=== PATIENT | female | born 1945 | race Caucasian/White ===

== ENCOUNTER 2016-09-19 12:36 | Emergency (ER) | payer MEDICARE, OTHER ==
--- NOTE | 2016-09-19 13:45 | ED Physician Documentation ---
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 - Present Medications Home Medications: Ambulatory Orders Medication Instructions Recorded Confirmed Carvedilol [Coreg] 12.5 mg PO BID 09/02/14 09/19/16 Pantoprazole [Protonix] 40 mg PO DAILY 09/02/14 09/19/16 Lisinopril 10 mg PO DAILY 09/19/16 09/19/16 - Allergies Allergies/Adverse Reactions: Allergies Allergy/AdvReac Type Severity Reaction Status Date / Time No Known Drug Allergies Allergy Verified 07/29/15 18:23 - Social History Does the pt smoke?: No Smoking Status: Never smoker Does the pt drink ETOH?: No Does the pt have substance abuse?: No - Immunizations Immunizations are current?: Yes - POLST Patient has POLST: No Results - Vitals Vitals: Vital Signs - 24 hr 09/19/16 12:43 Temperature 36.4 C L Heart Rate 56 L Respiratory 16 Rate Blood Pressure 143/79 H O2 Saturation 100 Oxygen O2 Source Room air
[2016-09-19] MEDS ORDERED: DEXAMETHASONE 10 MG/ML VIAL PO STA (14:02)
[2016-09-19] MEDS ORDERED: DEXAMETHASONE 10 MG/ML VIAL ONE (14:04)
--- NOTE | 2016-09-19 14:51 | XRAY Preliminary Report ---
Exam: XR Hand 3 View RT IMPRESSION: 1. No acute bony abnormality. 2. Mild to moderate noninflammatory degenerative changes wrist. 3. Minimal degenerative changes DIP joints. [facility] SITE ID: [id number]
--- NOTE | 2016-09-19 15:00 | XRAY Report ---
EXAM: RIGHT HAND RADIOGRAPHY EXAM DATE: 09/19/2016 02:29 PM. CLINICAL HISTORY: Pain without acute precipitating injury. Remote fracture. COMPARISON: None. TECHNIQUE: 3 views. FINDINGS: Bones: Mature irregularity radial articular cortex consistent with an old fracture. Trabecular and cortical patterns are intact. No ulnar variance. Joints: Bones in anatomic alignment. Numerous 6 mm and smaller subcortical cysts throughout the carpa l bones. Moderate narrowing of the intercarpal joint spaces without erosive changes, to a greatest de gree at the scapho-greater multangular. Grade 1 subluxation base first metacarpal relative to the greater multangular without bony reactive c hanges. Chondrocalcinosis of the triangular fibrocartilage. Extremely tiny osteophytes and subcortical reactive changes involving the DIP joints. Soft Tissues: Normal. No soft tissue swelling. IMPRESSION: 1. No acute bony abnormality. 2. Mild to moderate noninflammatory degenerative changes wrist. 3. Minimal degenerative changes DIP joints. [facility] Referring Provider Line: [phone] SITE ID: [id number]
--- NOTE | 2016-09-19 15:13 | ED Physician Documentation ---
History of Present Illness - Stated complaint Stated Complaint: HAND PX - Chief complaint Chief Complaint: Ext Problem - History obtained from History obtained from: Patient - History of Present Illness Timing: How many days ago (4) - Additonal information Additional information: 71 y/o female has broken her right hand previously and this has healed and she has not had problems with it until several days ago. She has started to have pain in the hand over the area where she had the fracture and she is concerned as she has a history of previous polio and post polio syndrome. She does not think she did anything to her hand to injure it but she did do some work that she is not used to doing including cleaning up trees that fell on her property with her . Review of Systems Constitutional: denies: Fever, Chills, Fatigue Eyes: denies: Decreased vision Ears: reports: Ear pain Nose: reports: Rhinorrhea / runny nose, Congestion Throat: denies: Sore throat Cardiac: denies: Chest pain / pressure, Palpitations Respiratory: denies: Dyspnea, Cough GI: denies: Nausea, Vomiting : denies: Dysuria, Frequency Skin: denies: Rash Musculoskeletal: reports: Extremity pain, Joint pain. denies: Neck pain, Back pain Neurologic: reports: Headache. 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 - Present Medications Home Medications: Ambulatory Orders Medication Instructions Recorded Confirmed Carvedilol [Coreg] 12.5 mg PO BID 09/02/14 09/19/16 Pantoprazole [Protonix] 40 mg PO DAILY 09/02/14 09/19/16 Levofloxacin [Levaquin] 500 mg PO DAILY #7 tablet 09/19/16 Lisinopril 10 mg PO DAILY 09/19/16 09/19/16 - Allergies Allergies/Adverse Reactions: Allergies Allergy/AdvReac Type Severity Reaction Status Date / Time No Known Drug Allergies Allergy Verified 07/29/15 18:23 - Social History Does the pt smoke?: No Smoking Status: Never smoker Does the pt drink ETOH?: No Does the pt have substance abuse?: No - Immunizations Immunizations are current?: Yes - POLST Patient has POLST: No PD ED PE NORMAL - Vitals Vital signs reviewed: Yes (hypertensive ) - General General: Alert and oriented X 3, No acute distress, Well developed/nourished - HEENT HEENT: Atraumatic, PERRL, EOMI, Other (The left TM is mildly inflamed and the right is clear. ) - Neck Neck: Supple, no meningeal sign, No bony TTP - Cardiac Cardiac: RRR, No murmur - Respiratory Respiratory: No respiratory distress, Clear bilaterally - Abdomen Abdomen: Soft, Non tender - Back Back: No CVA TTP, No spinal TTP - Derm Derm: Normal color, Warm and dry, No rash - Extremities Extremities: No deformity, No edema, Other (The hand itself is working normally there is no sign of direct inflamation and the distal n/v is intact. 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 No acute bony abnormality. 2. Mild/moderate noninflammatory degenerative changes wrist. 3. Minimal degenerative changes DIP joints.), EMP read indepedently, See rad report PD MEDICAL DECISION MAKING - ED course Complexity details: considered differential, d/w patient ED course: mild inflammation in the left ear has been an issue for the patient since a return home from a trip that resulted in pneumonia and OM. She appears to have pain in the hand after increased use and in the context of OM that has been a problem for over a year. She is reassured by looking at the films of her hand and she is given decadron 10m PO and we will put her on some levaquin. Departure - Departure Disposition: 01 Home, Self Care Clinical Impression: Right hand pain Left otitis media Qualifiers: Otitis media type: suppurative Chronicity: acute Recurrence: not specified as recurrent Spontaneous tympanic membrane rupture: without spontaneous rupture Qualified Code(s): H66.002 - Acute suppurative otitis media without spontaneous rupture of ear drum, left ear Condition: Stable Instructions: ED Otitis Media Acute Adult Follow-Up: Jaun Gould MD [Primary Care Provider] - Prescriptions: Levofloxacin [Levaquin] 500 mg PO DAILY #7 tablet
[2016-09-19 15:33] VITALS: BP 153/67
== END 2016-09-19 15:33 | disposition home or self-care (01) ==
LOC: ED 12:36
DX: M79.641 Pain in right hand (principal); H66.002 Acute suppurative otitis media without spontaneous rupture of ear drum, left ear; I10 Essential (primary) hypertension; K21.9 Gastro-esophageal reflux disease without esophagitis; Z87.442 Personal history of urinary calculi; M19.90 Unspecified osteoarthritis, unspecified site
CPT/HCPCS: 99283

== ENCOUNTER 2017-02-21 07:59 | Outpatient (CLI) | payer MEDICARE, OTHER ==
--- NOTE | 2017-02-26 17:11 | Mammography Report ---
DIGITAL SCREENING MAMMOGRAM: 02/21/2017 CLINICAL INDICATION: A 71-year-old with history of late childbearing, for screening. COMPARISON: Films from [place], [place] dated 03/20/2015, 03/18/2014, 03/15/2013, 03/11/2012, 12/2010, 03/05/2010. TECHNIQUE: Routine CC and MLO projections were obtained of the breasts. Bilateral laterally exaggera bharath craniocaudal views. FINDINGS: The breasts again demonstrate heterogeneously dense fibroglandular parenchyma bilaterally. Punctate, typically benign calcifications are present. No suspicious masses, clustered microcalcific ations, or regions of architectural distortion are identified. IMPRESSION: BENIGN FINDINGS. RECOMMENDATION: ROUTINE ANNUAL SCREENING UNLESS OTHERWISE CLINICALLY INDICATED. BIRADS CATEGORY 2-BENIGN FINDINGS. STANDARD QUALIFYING STATEMENTS 1. This examination was reviewed with the aid of Computer-Aided Detection (CAD). 2. A negative or benign imaging report should not delay biopsy if clinically suspicious findings are present. Consider surgical consultation if warranted. More than 5% of cancers are not identified by i maging. 3. Dense breasts may obscure an underlying neoplasm. JOB #: [id number] EXT JOB #:[id number]
== END 2017-02-21 08:00 | disposition home or self-care (01) ==
LOC: DI 07:59
PROVIDERS: ATTEND Obstetrics & Gynecology
DX: Z12.31 Encounter for screening mammogram for malignant neoplasm of breast (principal)
CPT/HCPCS: 77067

== ENCOUNTER 2017-05-01 10:00 | Outpatient (CLI) | payer MEDICARE, OTHER ==
--- NOTE | 2017-05-02 08:54 | XRAY Report ---
DATE OF SERVICE: 05/01/2017 TWO VIEW CHEST: 05/01/2017 COMPARISON: Chest CT 07/29/2015. INDICATION: Postop surgery 2 days ago. Possible bronchitis. TECHNIQUE: Two views of the chest. FINDINGS: The lungs appear clear. No pneumothorax or pleural effusion. Mediastinum unremarkable, apart from tortuosity of the thoracic aorta. IMPRESSION: No evidence of acute thoracic process. TD: 05/01/2017 19:01 [facility]
== END 2017-05-01 10:01 | disposition home or self-care (01) ==
LOC: DI 10:00
PROVIDERS: ATTEND Family Medicine
DX: J20.9 Acute bronchitis, unspecified (principal); E21.3 Hyperparathyroidism, unspecified; Z86.12 Personal history of poliomyelitis
CPT/HCPCS: 71046

== ENCOUNTER 2018-03-25 09:26 | Outpatient (CLI) | payer MEDICARE, OTHER ==
--- NOTE | 2018-03-26 09:04 | Mammography Report ---
Reason: SCREENING MAMMO Procedure Date: 03/25/2018 Accession Number: [id number] / [id number] Procedure: MGN - Screening Mammo Dig Bilat CPT Code: FULL RESULT: EXAM: Screening Mammo Dig Bilat DATE: 03/25/2018 9:54 AM CLINICAL HISTORY: Screening encounter. History of late childbearing. TECHNIQUE: Bilateral CC, laterally exaggerated CC, MLO views were obtained. COMPARISON: 02/21/2017 through 03/11/2012. FINDINGS: The breasts demonstrate heterogeneously dense fibroglandular parenchyma bilaterally. No suspicious masses, clustered microcalcifications, or regions of architectural distortion are identified. IMPRESSION: Negative examination RECOMMENDATION: Routine annual screening unless otherwise clinically indicated. BIRADS CATEGORY 1: Negative STANDARD QUALIFYING STATEMENTS: 1. This examination was reviewed with the aid of Computer-Aided Detection (CAD). 2. A negative or benign imaging report should not preclude biopsy if clinically suspicious findings are present. 3. Dense breasts may obscure an underlying neoplasm. 4. This examination was reviewed without the aid of 3D breast imaging (tomosynthesis).
== END 2018-03-25 09:27 | disposition home or self-care (01) ==
LOC: DI.N 09:26
DX: Z12.31 Encounter for screening mammogram for malignant neoplasm of breast (principal)
CPT/HCPCS: 77067

== ENCOUNTER 2018-09-15 14:11 | Outpatient (CLI) | payer MEDICARE, OTHER ==
--- NOTE | 2018-09-15 15:23 | XRAY Report ---
Reason: PLEURODYNIA Procedure Date: 09/15/2018 Accession Number: [id number] / [id number] Procedure: XR - Chest 2 View X-Ray CPT Code: 05362 FULL RESULT: EXAM: CHEST RADIOGRAPHY EXAM DATE: 09/15/2018 02:33 PM. CLINICAL HISTORY: PLEURODYNIA. COMPARISON: CHEST 2 VIEW 05/01/2017 10:26 AM. TECHNIQUE: 2 views. FINDINGS: Lungs/Pleura: There is minimal linear opacification at the left lung base, favor subsegmental atelectasis. No lobar consolidation. No pleural effusion. No pneumothorax. Normal volumes. Mediastinum: Heart and mediastinal contours are unremarkable. Other: None. IMPRESSION: Suspect subsegmental atelectasis at the left lung base. [facility]
== END 2018-09-15 14:12 | disposition home or self-care (01) ==
LOC: DI 14:11
PROVIDERS: ATTEND Specialist
DX: J98.11 Atelectasis (principal)
CPT/HCPCS: 71046

== ENCOUNTER 2019-07-01 08:32 | Outpatient (CLI) | payer MEDICARE, OTHER ==
--- NOTE | 2019-07-02 08:39 | Mammography Report ---
Reason: ROUTINE MAMMO Procedure Date: 07/01/2019 Accession Number: [id number] / [id number] Procedure: SINGH - Screening Mammo w/Tor CPT Code: Final Report FULL RESULT: EXAM: Screening Mammo w/Tor DATE: 07/01/2019 9:07 AM CLINICAL HISTORY: Screening encounter. History of late childbearing. TECHNIQUE: (B) - Bilateral CC, laterally exaggerated CC, MLO views were obtained. COMPARISON: 03/25/2018 through 03/05/2010. PARENCHYMAL PATTERN: (D) - The breast(s) demonstrate(s) heterogeneously dense fibroglandular parenchyma. FINDINGS: There are no suspicious masses, calcifications, or areas of distortion. IMPRESSION: Negative examination. BI-RADS category 1. RECOMMENDATION: (ANNUAL) - Recommend routine annual screening mammography. BI-RADS CATEGORY: (1) - Negative. STANDARD QUALIFYING STATEMENTS: 1. This examination was not reviewed with the aid of Computer-Aided Detection (CAD). 2. A negative or benign imaging report should not preclude biopsy if clinically suspicious findings are present. 3. Dense breasts may obscure an underlying neoplasm. 4. This examination was reviewed without the aid of 3D breast imaging (tomosynthesis).
== END 2019-07-01 08:33 | disposition home or self-care (01) ==
LOC: DI 08:32
PROVIDERS: ATTEND Obstetrics & Gynecology
DX: Z12.31 Encounter for screening mammogram for malignant neoplasm of breast (principal)
CPT/HCPCS: 77063; 77067

== ENCOUNTER 2019-07-01 08:32 | Outpatient (CLI) | payer MEDICARE, OTHER ==
--- NOTE | 2019-07-02 10:24 | DEXA Report ---
Reason: POSTMENOPAUSAL Procedure Date: 07/01/2019 Accession Number: [id number] / [id number] Procedure: DEX - Dexa Spine and/or Hip CPT Code: Final Report FULL RESULT: EXAM: Dexa Spine and/or Hip DATE: 07/01/2019 9:36 AM CLINICAL HISTORY: POSTMENOPAUSAL TECHNIQUE: Dual energy x-ray absorptiometry (DXA) was performed on a [employer] System. Regions measured are the AP Spine, femoral neck, and if needed forearm. COMPARISON: 03/19/2016. In accordance with the International Society for Clinical Densitometry (ISCD) guidelines, data from previous exams may be reanalyzed using current recommendations and techniques. This is done to allow a more accurate basis for comparison with the current study. FINDINGS: The data for the lumbar spine is as follows: BMD (g/cm/cm) T-SCORE Z-SCORE REGION L1 0.912 -1.8 -0.7 L2 1.104 -0.8 0.4 L3 1.213 0.1 1.3 L4 1.364 1.4 2.5 TOTAL 1.151 -0.2 0.9 NOTE: All evaluable vertebrae are used for classification The data for the hip is as follows: BMD (g/cm/cm) T-SCORE Z-SCORE REGION Neck 0.700 -2.4 -1.0 TOTAL 0.805 -1.6 -0.4 NOTE: The femoral neck or total proximal femur, whichever is lowest, is used for classification. DXA RESULTS SUMMARY: Spine SCAN DATE AGE BMD CHANGE VS CHANGE VS PREVIOUS PREVIOUS % 07[birth year]01/2019 [age] 1.151 0.100* 9.5* 03/19/2016 [age] 1.051 * Denotes significant change at the 95% confidence level. Denotes dissimilar scan types or analysis methods. DXA RESULTS SUMMARY: Hip SCAN DATE AGE BMD CHANGE VS CHANGE VS PREVIOUS PREVIOUS % 07[birth year]01/2019 74.3 0.805 -0.011 -1.3 03/19/2016 [age] 0.816 * Denotes significant change at the 95% confidence level. Denotes dissimilar scan types or analysis methods. IMPRESSION: THE WHO CLASSIFICATION BASED ON THE INTERNATIONAL REFERENCE STANDARD IS OSTEOPENIA. THE FRACTURE RISK IS INCREASED. Interval decrease in bone density in the lumbar spine is statistically significant. RECOMMENDATION: Patients with diagnosis of osteoporosis or osteopenia should have regular bone mineral density assessment. For those eligible for Medicare, routine testing is allowed once every 2 years. Testing frequency can be increased for patients who have rapidly progressing disease or for those who are receiving medical therapy to restore bone mass. COMMENT: World Health Organization (WHO) definitions for osteoporosis and osteopenia: NORMAL BMD: T-score at -1.0 or higher, fracture risk is low OSTEOPENIA BMD: T-score between -1.0 and -2.5, fracture risk is increased. OSTEOPOROSIS BMD: T-score at -2.5 or lower, fracture risk is high. National Osteoporosis Foundation recommends: 1. Obtain adequate dietary calcium (at least 1200 mg per day) and vitamin D (400-800 international units per day). 2. Participate, as appropriate, in regular weightbearing and muscle-strengthening exercise. 3. Avoid tobacco use and reduce alcohol and caffeine intake. 4. For more detailed information see the website at www.NOF.org.
== END 2019-07-01 08:33 | disposition home or self-care (01) ==
LOC: DI 08:32
PROVIDERS: ATTEND Obstetrics & Gynecology
DX: M85.88 Other specified disorders of bone density and structure, other site (principal)
CPT/HCPCS: 77080

== ENCOUNTER 2020-07-05 08:56 | Outpatient (CLI) | payer MEDICARE, OTHER ==
--- NOTE | 2020-07-06 13:27 | Mammography Report ---
BILATERAL DIGITAL SCREENING MAMMOGRAM 3D/2D: 07/05/2020 CLINICAL: Routine screening. Comparison is made to exams dated: 07/01/2019 mammogram, 03/25/2018 mammogram, 02/21/2017 mammogram - [facility], 03/20/2015 mammogram, 03/18/2014 mammogram, and 03/15/2013 mammogram - [facility]. The tissue of both breasts is predominantly fatty. No significant masses, calcifications, or other findings are seen in either breast. There has been no significant interval change. IMPRESSION: NEGATIVE There is no mammographic evidence of malignancy. A 1 year screening mammogram is recommended. This exam was interpreted at Station ID: [id number]. NOTE: For mammograms, a report in lay terms will be sent to the patient. Approximately 15% of breast malignancies will not be visualized mammographically. In the management of a palpable breast mass, a negative mammogram must not discourage biopsy of a clinically suspicious lesion. Electronically Signed By: Octavio Sawant M.D., jr/tomasa:07/05/2020 09:54:33 ACR BI-RADS Category 1: Negative 3341F PARENCHYMAL PATTERN: (F) - The breast(s) demonstrate(s) diffuse fatty replacement. BI-RADS CATEGORY: (1) - 1 RECOMMENDATION: (ANNUAL) - Recommend routine annual screening mammography. [id number] 1 year screening LATERALITY: (B)
== END 2020-07-05 08:57 | disposition home or self-care (01) ==
LOC: DI.N 08:56
DX: Z12.31 Encounter for screening mammogram for malignant neoplasm of breast (principal)

== ENCOUNTER 2020-07-06 17:14 | Outpatient (CLI) | payer MEDICARE, OTHER ==
--- NOTE | 2020-07-07 12:04 | XRAY Report ---
PROCEDURE: Cervical Spine 2 View INDICATIONS: Cervicalgia TECHNIQUE: 3 view(s) of the cervical spine were acquired. COMPARISON: None. FINDINGS: Bones: No fractures or dislocations to the C7-T1 level. The lateral masses of C1 appear intact on t he odontoid view. No suspicious bony lesions. There is grade 1 retrolisthesis, 2 mm of C3 on C4, ra te 1 anterolisthesis, 1 mm the C4 on C5, grade 1 retrolisthesis of C5 on C6, 1 mm. There is severe di sc space narrowing at C3-4 C5-6 and C6-7. Multilevel uncovertebral arthropathy is present. Soft tissues: No prevertebral soft tissue swelling. IMPRESSION: Multilevel degenerative changes most severe at C5-6 and C6-7. Given the degree of multil evel uncovertebral arthropathy, there is likely foraminal narrowing. MRI cervical spine may be obtain ed as clinically indicated for further evaluation. Reviewed by: Milla Courtney MD on 07/07/2020 12:03 PM PST Approved by: Milla Courtney MD on 07/07/2020 12:03 PM PST Station ID: [id number]
== END 2020-07-06 17:15 | disposition home or self-care (01) ==
LOC: DI 17:14
PROVIDERS: ATTEND Internal Medicine
DX: M54.2 Cervicalgia (principal); M47.812 Spondylosis without myelopathy or radiculopathy, cervical region

== ENCOUNTER 2021-08-08 11:43 | Outpatient (CLI) | payer MEDICARE, OTHER ==
--- NOTE | 2021-08-09 15:53 | Mammography Report ---
BILATERAL DIGITAL SCREENING MAMMOGRAM 3D/2D: 08/08/2021 CLINICAL: Routine screening. Comparison is made to exams dated: 07/05/2020 mammogram, 07/01/2019 mammogram, 03/25/2018 mammogram, mammogram - [facility], 03/20/2015 mammogram, and 03/18/2014 mammogram - [facility]. The tissue of both breasts is heterogeneously dense. This may lower th e sensitivity of mammography. No significant masses, calcifications, or other findings are seen in either breast. There has been no significant interval change. IMPRESSION: NEGATIVE There is no mammographic evidence of malignancy. A 1 year screening mammogram is recommended. This exam was interpreted at Station ID: [id number]. NOTE: For mammograms, a report in lay terms will be sent to the patient. Approximately 15% of breast malignancies will not be visualized mammographically. In the management of a palpable breast mass, a negative mammogram must not discourage biopsy of a clinically suspicious lesion. Electronically Signed By: Ev quiles/tomasa:08/08/2021 16:55:55 ACR BI-RADS Category 1: Negative 3341F PARENCHYMAL PATTERN: (D) - The breast(s) demonstrate(s) heterogeneously dense fibroglandular carli aguirre. BI-RADS CATEGORY: (1) - 1 RECOMMENDATION: (ANNUAL) - Recommend routine annual screening mammography. [id number] 1 year screening LATERALITY: (B)
== END 2021-08-08 11:44 | disposition home or self-care (01) ==
LOC: DI.N 11:43
PROVIDERS: ATTEND Obstetrics & Gynecology
DX: Z12.31 Encounter for screening mammogram for malignant neoplasm of breast (principal)

== ENCOUNTER 2021-09-20 12:07 | Outpatient (CLI) | payer MEDICARE ==
--- NOTE | 2021-09-20 14:23 | XRAY Report ---
PROCEDURE: Shoulder 3 View RT INDICATIONS: RIGHT SHOULDER PAIN TECHNIQUE: 3 views of the shoulder were acquired. COMPARISON: None. FINDINGS: Bones: No fractures or dislocations. No suspicious bony lesions. Moderate degenerative changes are present at the right acromioclavicular joint. Visualized ribs appear intact. Soft tissues: No suspicious soft tissue calcifications. IMPRESSION: Degenerative change of the right acromioclavicular joint. Reviewed by: Marta Carrasco MD on 09/20/2021 2:21 PM PDT Approved by: Marta Carrasco MD on 09/20/2021 2:21 PM PDT Station ID: [id number]
== END 2021-09-20 12:08 | disposition home or self-care (01) ==
LOC: DI 12:07
PROVIDERS: ATTEND Physician Assistant
DX: M19.011 Primary osteoarthritis, right shoulder (principal)

== ENCOUNTER 2021-10-04 12:24 | Outpatient (CLI) | payer MEDICARE ==
--- NOTE | 2021-10-04 15:33 | DEXA Report ---
PROCEDURE: Dexa Spine and/or Hip INDICATIONS: OSTEOPENIA TECHNIQUE: Dual energy x-ray absorptiometry (DXA) was performed on a [employer] System. Regions measur ed are the AP Spine, femoral neck, and if needed forearm. COMPARISON: None. FINDINGS: Lumbar Spine: Bone Mineral Density 1.168 g/cm/cm,T score -0.1, normal Left total Hip: Bone Mineral Density 0.800 g/cm/cm,T score -1.7, osteopenia Left Femoral Neck: Bone Mineral Density 0.634 g/cm/cm, T score -2.9, osteoporosis (T score greater or equal to -1.0: NORMAL) (T score from -1.1 to -2.4: OSTEOPENIA) (T score less than or equal to -2.5 to: OSTEOPOROSIS) Impression: Bone mineral density consistent with osteoporosis. Patients with diagnosis of osteoporosis or osteopenia should have regular bone mineral density assess ment. For those eligible for Medicare, routine testing is allowed once every 2 years. Testing frequ ency can be increased for patients who have rapidly progressing disease or for those who are receivin g medical therapy to restore bone mass. Reviewed by: Tarik Sherman on 10/04/2021 3:31 PM PDT Approved by: Tarik Sherman on 10/04/2021 3:31 PM PDT Station ID: [id number]
== END 2021-10-04 12:25 | disposition home or self-care (01) ==
LOC: DI 12:24
PROVIDERS: ATTEND Physician Assistant
DX: M85.88 Other specified disorders of bone density and structure, other site (principal)

== ENCOUNTER 2022-10-07 07:52 | Outpatient (CLI) | payer MEDICARE ==
--- NOTE | 2022-10-07 16:08 | DEXA Report ---
PROCEDURE: Dexa Spine and/or Hip INDICATIONS: OSTEOPENIA TECHNIQUE: Dual energy x-ray absorptiometry (DXA) was performed on a [employer] System. Regions measur ed are the AP Spine, femoral neck, and if needed forearm. COMPARISON: DEXA 10/04/2021 FINDINGS: Lumbar Spine: Bone Mineral Density 1.185 g/cm/cm,T score 0, compared to -0.1. Left Femoral Neck: Bone Mineral Density 0.650 g/cm/cm, T score -2.8, compared to -2.9. Left Hip: Bone Mineral Density 0.762 g/cm/cm,T score -1.9, compared to -1.7. Right femoral neck: Bone mineral density 0.689 g/cm/cm, T score -2.5, no priors. Right hip: Bone mineral density 0.790 g/cm/CM, T score -1.7, no priors Left Forearm: Bone Mineral Density 0.777 g/cm/cm, T score -1.1, no priors for comparison including forearm. (T score greater or equal to -1.0: NORMAL) (T score from -1.1 to -2.4: OSTEOPENIA) (T score less than or equal to -2.5 to: OSTEOPOROSIS) Impression: By WHO criteria, this patient has osteoporosis within the left femoral neck. There is osteopenia with in the hips bilaterally Patients with diagnosis of osteoporosis or osteopenia should have regular bone mineral density assess ment. For those eligible for Medicare, routine testing is allowed once every 2 years. Testing frequ ency can be increased for patients who have rapidly progressing disease or for those who are receivin g medical therapy to restore bone mass. Reviewed by: Milla Courtney MD on 10/07/2022 4:07 PM PDT Approved by: Milla Courtney MD on 10/07/2022 4:07 PM PDT Station ID: [id number]
== END 2022-10-07 07:53 | disposition home or self-care (01) ==
LOC: DI 07:52
PROVIDERS: ATTEND Internal Medicine Endocrinology, Diabetes & Metabolism
DX: M81.0 Age-related osteoporosis without current pathological fracture (principal)

== ENCOUNTER 2022-12-17 13:59 | Outpatient (CLI) | payer MEDICARE ==
--- NOTE | 2022-12-18 09:27 | Mammography Report ---
BILATERAL DIGITAL SCREENING MAMMOGRAM 3D/2D: 12/17/2022 CLINICAL: Routine screening. Comparison is made to exams dated: 08/08/2021 mammogram, 07/05/2020 mammogram, 07/01/2019 mammogram, mammogram, 02/21/2017 mammogram - [facility], and 03/20/2015 mammogram - [facility]. Both breasts are heterogeneously dense, which may obscure small masses (category c / 51-75% glandular tissue). No significant masses, calcifications, or other findings are seen in either breast. There has been no significant interval change. IMPRESSION: NEGATIVE There is no mammographic evidence of malignancy. A 1 year screening mammogram is recommended. Based on the Tyrer Cuzick model (a risk assessment model) the patients lifetime risk is 5.6% and her 10 year risk is 5.6%. According to the ACR, ACS, and NCCN guidelines, an annual breast MRI exam zay g with mammogram is recommended if the patients lifetime risk is 20% or greater. This exam was interpreted at Station ID: [id number]. NOTE: For mammograms, a report in lay terms will be sent to the patient. Approximately 15% of breast malignancies will not be visualized mammographically. In the management of a palpable breast mass, a negative mammogram must not discourage biopsy of a clinically suspicious lesion. Electronically Signed By: Ev [email or web address]/[email or web address]:12/18/2022 08:16:00 letter sent: No_Letter ACR BI-RADS Category 1: Negative 3341F PARENCHYMAL PATTERN: (D) - The breast(s) demonstrate(s) heterogeneously dense fibroglandular carli aguirre. BI-RADS CATEGORY: (1) - 1 Mammogram [id number] 1 year screening LATERALITY: (B)
== END 2022-12-17 14:00 | disposition home or self-care (01) ==
LOC: DI 13:59
PROVIDERS: ATTEND Nurse Practitioner Family
DX: Z12.31 Encounter for screening mammogram for malignant neoplasm of breast (principal)

== ENCOUNTER 2023-01-01 14:46 | Outpatient (CLI) | payer MEDICARE | END 2023-01-01 14:47 | disposition home or self-care (01) | LOC: DI 14:46 | PROVIDERS: ATTEND Family Medicine | DX: I34.0 Nonrheumatic mitral (valve) insufficiency (principal); I77.810 Thoracic aortic ectasia | CPT/HCPCS: 93306 ==

== ENCOUNTER 2023-04-16 07:57 | Outpatient (CLI) | payer MEDICARE ==
--- NOTE | 2023-04-16 10:22 | Ultrasound Report ---
PROCEDURE: Retroperitoneal INDICATIONS: HYPDERPARATHYROIDISM TECHNIQUE: Real-time scanning was performed of the retroperitoneal organs, with image documentation. COMPARISON: CT abdomen pelvis 09/02/2014. FINDINGS: Kidneys: Kidneys are normal in size. Right kidney measures 11.8 cm long; left kidney measures 9.9 c m long. Right renal cortical thickness is 1.4 cm; left renal cortical thickness is 0.8 cm. No solid masses or hydronephrosis. Bilateral renal stones. Right superior lateral stone measuring 1.9 cm, rig ht mainstem measuring 1.6 cm. Left mid stone measuring 1.8 cm. Left inferior stone measuring 1.5 cm. Bladder: Pre-void bladder volume is 80 mL. Post-void residual is 5 mL. Pre-void images demonstrate no intraluminal masses or stones. On pre-void images, bilateral ureteral jets are noted with color Doppler interrogation. (Of note, ureteral jets may not be detectable in up to 25% of cases due to in sufficient differences in specific gravity between ureteral and bladder urine). Miscellaneous: No free abdominal fluid. IMPRESSION: Bilateral renal stones measuring up to 1.9 cm. No hydronephrosis. Reviewed by: Carlos De Jesus MD on 04/16/2023 10:21 AM PST Approved by: Carlos De Jesus MD on 04/16/2023 10:21 AM PST Station ID: [id number]
== END 2023-04-16 07:58 | disposition home or self-care (01) ==
LOC: DI 07:57
PROVIDERS: ATTEND Internal Medicine
DX: E21.3 Hyperparathyroidism, unspecified (principal); N20.0 Calculus of kidney

== ENCOUNTER 2023-07-03 11:52 | Emergency (ER) | payer MEDICARE ==
--- NOTE | 2023-07-03 12:58 | XRAY Report ---
PROCEDURE: Chest 2V INDICATIONS: cough 1 week TECHNIQUE: 2 views of the chest were acquired. COMPARISON: None. FINDINGS: Surgical changes and devices: None. Lungs and pleura: No pleural effusions or pneumothorax. Lungs are clear. Mediastinum: Mediastinal contours appear normal. Heart size is normal. Bones and chest wall: No suspicious bony lesions. Overlying soft tissues appear unremarkable. IMPRESSION: No acute cardiopulmonary process. Reviewed by: Aleyda Plata MD on 07/03/2023 12:57 PM [facility] Approved by: Aleyda Plata MD on 07/03/2023 12:57 PM [facility] Station ID: [id number]
--- NOTE | 2023-07-03 13:55 | ED Physician Documentation ---
PD HPI URI - Stated complaint Stated Complaint: CONGESTION,COUGH/PX - Chief complaint Chief Complaint: Heent - History obtained from History obtained from: Patient - Additional information Additional information: Patient is a 78-year-old female with a history of hypertension presenting for evaluation of at least 4 days of nasal congestion with clear drainage and a dry hacking cough. Patient did take a home COVID test 2 days ago which was negative. Denies fever, chest pain, shortness of air. Reports having history of bronchitis and pneumonia which prompted her coming to the ER today for evalu ation. She has been tolerating p.o. intake. No recent travel. No known sick contacts. No leg swelling or pain.Cough is worse at night. Review of Systems Constitutional: denies: Fever Nose: reports: Congestion Cardiac: denies: Chest pain / pressure Respiratory: reports: Cough. denies: Dyspnea GI: denies: Abdominal Pain, Vomiting PD PAST MEDICAL HISTORY - Past Medical History Cardiovascular: Hypertension Respiratory: Shortness of breath GI: GERD : Kidney stones Musculoskeletal: Osteoarthritis, Fatigue, Chronic back pain, Other - Past Surgical History Past Surgical History: Yes Ortho: Other /ENDOCRINOLOGY NURSE: section - Present Medications Home Medications: Ambulatory Orders Medication Instructions Recorded Confirmed carvediloL [Coreg] 12.5 mg PO BID 09/02/14 07/03/23 lisinopriL [Lisinopril] 10 mg PO DAILY 09/19/16 07/03/23 Atorvastatin [Lipitor] 40 mg PO DAILY 07/03/23 07/03/23 - Allergies Allergies/Adverse Reactions: Allergies Allergy/AdvReac Type Severity Reaction Status Date / Time No Known Drug Allergies Allergy Verified 07/03/23 12:05 - Social History Does the pt smoke?: No Smoking Status: Never smoker Does the pt drink ETOH?: No Does the pt have substance abuse?: No - Immunizations Immunizations are current?: Yes - POLST Patient has POLST: No PD ED PE NORMAL - General General: Alert and oriented X 3, No acute distress, Well developed/nourished - HEENT HEENT: Atraumatic, Moist mucous membranes, Pharynx benign - Neck Neck: Supple, no meningeal sign - Cardiac Cardiac: RRR, Strong equal pulses - Respiratory Respiratory: No respiratory distress, Clear bilaterally - Abdomen Abdomen: Soft, Non tender - Derm Derm: Warm and dry - Neuro Neuro: Normal speech Results - Vitals Vitals: Vital Signs - 24 hr 07/03/23 07/03/23 11:57 13:54 Temperature 36.6 C 36.2 C L Heart Rate 64 66 Respiratory 16 17 Rate Blood Pressure 148/66 H 165/96 H O2 Saturation 97 96 Oxygen O2 Source Room air PD Medical Decision Making - ED course Complexity details: reviewed results, d/w patient ED course: Pt with URI symptoms for at least 4 days. VSS. Lungs clear. Chest XR negative for pneumonia. Home covid test negative and pt declines testing for covid/flu here. No CP or SOA. Counseled on continued supportive care as well as concerning symptoms to return for. Departure - Departure Disposition: 01 Home, Self Care Clinical Impression: Upper respiratory infection with cough and congestion Condition: Stable Instructions: ED URI Viral Comments: Your chest x-ray does not show signs of pneumonia. Your symptoms are likely related to a virus. Please continue with staying hydrated, acetaminophen as needed for fever or bodyaches. I would also recommend saline sprays in the nose to help loosen up congestion. I would also recommend holding on any dental procedures or sedation Until you are no longer having any cold or respiratory symptoms. Return to the ER with any worsening. Forms: PCP List Discharge Date/Time: 07/03/23 14:13
[2023-07-03 13:58] VITALS: BP 165/96; O2SAT 96
== END 2023-07-03 14:13 | disposition home or self-care (01) ==
LOC: ED 11:52
DX: J06.9 Acute upper respiratory infection, unspecified (principal); R05.9 Cough, unspecified; R09.81 Nasal congestion; I10 Essential (primary) hypertension
CPT/HCPCS: 99283

== ENCOUNTER 2023-11-05 09:56 | Outpatient (CLI) | payer MEDICARE ==
--- NOTE | 2023-11-05 17:23 | DEXA Report ---
PROCEDURE: Dexa Spine and/or Hip INDICATIONS: OSTEOPOROSIS TECHNIQUE: Dual energy x-ray absorptiometry (DXA) was performed on a Chug System. Regions measur ed are the AP Spine, femoral neck, and if needed forearm. COMPARISON: 10/07/2022 FINDINGS: Lumbar Spine: Bone Mineral Density: 1.15 g/cm/cm,T score: -0.2. Previously 0 Left Femoral Neck: Bone Mineral Density: 0.66 g/cm/cm, T score: -2.7, previously -2.8. Right femoral neck bone mineral density is 0.65, T score of -2.8, previously -2.5 Left Hip: Bone Mineral Density: 0.74 g/cm/cm,T score: -2.1. Previously -1.9 Right hip bone mineral density is 0.80, T score of -1.7, previously -1.7 Left Forearm: Bone Mineral Density: 0.77 g/cm/cm, T score: -1.2. Previously -1.1 (T score greater or equal to -1.0: NORMAL) (T score from -1.1 to -2.4: OSTEOPENIA) (T score less than or equal to -2.5 to: OSTEOPOROSIS) Impression: By WHO criteria, this patient has osteoporosis. Overall similar T-scores above. Patients with diagnosis of osteoporosis or osteopenia should have regular bone mineral density assess ment. For those eligible for Medicare, routine testing is allowed once every 2 years. Testing frequ ency can be increased for patients who have rapidly progressing disease or for those who are receivin g medical therapy to restore bone mass. Reviewed by: David Pablo MD on 11/05/2023 5:22 PM PDT Approved by: David Pablo MD on 11/05/2023 5:22 PM PDT Station ID: [id number]
== END 2023-11-05 09:57 | disposition home or self-care (01) ==
LOC: DI 09:56
PROVIDERS: ATTEND Nurse Practitioner Family
DX: M81.0 Age-related osteoporosis without current pathological fracture (principal)